=== PATIENT | female | born 1955 | race Caucasian/White ===

== ENCOUNTER 2022-12-29 17:24 | Inpatient (IN) ==
--- NOTE | 2022-12-29 17:39 | DR.DIARMA ---
HPI Time seen Time Seen by Provider: 12/29/22 17:39 Complaint Chief Complaint Doctor Comments: 67 y/o female presents for evaluation. Started feeling ill yesterday, 30 minutes after eating [employer]. Started with nausea, vomited once. Has had several episodes of diarrhea. Running low grade temp, with chills. Took a [address] ride yesterday. Having left lateral chest discomfort, dull, does not radiate. + worse with deep breathing. Nothing makes it better. Reviewed Nurses notes reviewed: Yes Source History Provided: Patient Mode of Arrival Mode of Arrival: Ambulatory PMH PMH Past Medical History: COPD, Diabetes, Dyslipidemia and Hypertension Past Surgical History: Yes Surgical History: Appendectomy Family History Family Medical History: Coronary Artery Disease and Hypertension Social History Do you use any recreational Drugs:: No ROS Review of Systems Constitutional: Chills, Fever and Weakness Eyes: No Symptoms Reported ENTM: No Symptoms Reported Respiratoy: No Symptoms Reported Cardiovascular: Chest Pain Gastrointestinal/Abdominal: Diarrhea, Nausea and Vomiting Genitourinary: No Symptoms Reported Neurological: Weakness Musculoskeletal: No Symptoms Reported Integumentary: No Symptoms Reported Hematologic/Lymphatic: No Symptoms Reported All Other Systems: Reviewed and Negative PE Vital Signs Vitals: Temperature 99.6 F Pulse Rate 84 Respiratory Rate 20 Blood Pressure 104/48 O2 Sat by Pulse Oximetry 93 General General Appearance: Alert and In No Apparent Distress Eyes Eye exam: PERRL and EOMI ENT ENT Exam: Normal Exam, Normal Oropharynx and Mucous Membranes Dry Neck Neck Exam: Normal Inspection Chest Chest Inspection: Tenderness (mild, left lateral chest wall) Respiratory Respiratory Exam: Normal Lung Sounds Bilat; negative Accessory Muscle Use or Respiratory Distress Cardiovascular Cardiovascular Exam: Regular Rate, Normal Rhythm and Normal Heart Sounds Abdominal Exam Abdominal Exam: Normal Bowel Sounds and Soft; negative Tenderness, Guarding or Rebound Extremeties Extremities Exam: Normal Inspection and Full ROM; negative Edema Neurologic Neurological Exam: Alert, Oriented X3 and CN II-XII Intact; negative Motor Sensory Deficit Skin Skin Exam: Warm and Dry COURSE Treatment Treatment: 7 y/o female ill since yesterday. + nausea, one episode of vomiting and frequent diarrhea. BP low on arrival. Not dizzy or lightheaded. Having left lateral chest discomfort with deep breath. W/u initiated. Given IV fluids, IV zofran. 1915 - + marked elevated WBC, 35K, with left shift. Sodium low at 130. Good bicarb, but LA elevated. Concerning for developing sepsis. Given additional IV fluids, Given IV antibiotic (Levaquin, Flagyl), for possible abdominal infection. D-dimer elevated. EGFR lower than ideal. Will cover with Lovenox for possible PE, perform a plain CT of the abd//pelvis for further information. Discussed with her attending, Dr Wild, will admit. ROR Labs Reviewed Laboratory Results Reviewed?: Yes Result Diagrams: 12/29/22 17:40 12/29/22 17:40 Laboratory: WBC 34.9 X10^3/uL (3.6-10.0) H* 12/29/22 17:40 RBC 3.55 X10^6/uL (3.5-5.4) 12/29/22 17:40 Hgb 10.6 g/dL (12.0-16.0) L 12/29/22 17:40 Hct 32.0 % (36.0-47.0) L 12/29/22 17:40 MCV 90.1 fL (80.0-100.0) 12/29/22 17:40 MCH 29.8 pg (27.0-34.0) 12/29/22 17:40 MCHC 33.1 g/dL (33.0-35.0) 12/29/22 17:40 RDW 15.0 % (11.6-16.5) 12/29/22 17:40 Plt Count 242 X10^3/uL (150.0-450.0) 12/29/22 17:40 Plt Count Comment Adequate (ADEQUATE) 12/29/22 17:40 MPV 9.0 fL (7.4-11.0) 12/29/22 17:40 Neut % (Auto) 94.7 % (42.0-75.0) H 12/29/22 17:40 Lymph % (Auto) 1.8 % (21.0-51.0) L 12/29/22 17:40 [place] % (Auto) 3.2 % (0.0-13.0) 12/29/22 17:40 Eos % (Auto) 0.1 % (0.9-2.9) L 12/29/22 17:40 Baso % (Auto) 0.2 % (0.2-1.0) 12/29/22 17:40 Neut # (Auto) 33.1 x10^3/uL (2.2-4.8) H 12/29/22 17:40 Lymph # (Auto) 0.6 X10^3/uL (1.3-2.9) L 12/29/22 17:40 [place] # (Auto) 1.1 x10^3/uL (0.3-0.8) H 12/29/22 17:40 Eos # (Auto) 0.0 x10^3/uL (0.0-0.2) 12/29/22 17:40 Baso # (Auto) 0.1 X10^3/uL (0.0-0.1) 12/29/22 17:40 Absolute Nucleated RBC 0.0 /100WBC 12/29/22 17:40 Total Counted 100 12/29/22 17:40 Neutrophils % (Manual) 95 % (39-76) H 12/29/22 17:40 Lymphocytes % (Manual) 4 % (13-43) L 12/29/22 17:40 Monocytes % (Manual) 1 % (4-9) L 12/29/22 17:40 Plt Morphology Comment Normal (NORMAL) 12/29/22 17:40 RBC Morphology Normal (NORMAL) 12/29/22 17:40 D-Dimer 2.19 ug/ml (0.0-0.57) H 12/29/22 17:40 Sodium 130 mmol/L (136-145) L 12/29/22 17:40 Corrected Sodium 131 mmol/L (136-145) L 12/29/22 17:40 Potassium 4.2 mmol/L (3.5-5.1) 12/29/22 17:40 Chloride 97 mmol/L (98-107) L 12/29/22 17:40 Carbon Dioxide 22.0 mmol/L (21-32) 12/29/22 17:40 BUN 38 mg/dL (7-18) H 12/29/22 17:40 Creatinine 1.56 mg/dL (0.55-1.02) H 12/29/22 17:40 Est GFR (MDRD) Af Amer 43 (>60) L 12/29/22 17:40 Est GFR (MDRD) Non-Af 35 (>60) L 12/29/22 17:40 Glucose 156 mg/dL (65-99) H 12/29/22 17:40 Lactic Acid 2.8 mmol/L (0.4-2.0) H 12/29/22 18:26 Calcium 8.7 mg/dL (8.5-10.1) 12/29/22 17:40 Corrected Calcium 9.7 mg/dL (8.5-10.1) 12/29/22 17:40 Total Bilirubin 0.50 mg/dL (0.2-1.0) 12/29/22 17:40 AST 23 Units/L (15-37) 12/29/22 17:40 ALT 21 Units/L (12-78) 12/29/22 17:40 Alkaline Phosphatase 77 Units/L (46-116) 12/29/22 17:40 Total Protein 6.7 g/dL (6.4-8.2) 12/29/22 17:40 Albumin 2.7 g/dL (3.4-5.0) L 12/29/22 17:40 Globulin 4.0 g/dL (2.5-4.5) 12/29/22 17:40 Albumin/Globulin Ratio 0.7 Ratio (1.1-2.1) L 12/29/22 17:40 Lipase 52 Units/L (73-393) L 12/29/22 17:40 Specimen Type Clean catch urine 12/29/22 18:56 Urine Color Yellow (YELLOW) 12/29/22 18:56 Urine Appearance Slightly hazy (CLEAR) 12/29/22 18:56 Urine pH 5.0 (5.0 - 8.0) 12/29/22 18:56 Ur Specific [place] 1.020 (1.000-1.030) 12/29/22 18:56 Urine Protein 1+ (NEGATIVE) 12/29/22 18:56 Urine Glucose (UA) Negative (NEGATIVE) 12/29/22 18:56 Urine Ketones Negative (NEGATIVE) 12/29/22 18:56 Urine Blood 2+ (NEGATIVE) 12/29/22 18:56 Urine Nitrite Negative (NEGATIVE) 12/29/22 18:56 Urine Bilirubin Negative (NEGATIVE) 12/29/22 18:56 Urine Urobilinogen Normal (NORMAL) 12/29/22 18:56 Ur Leukocyte Esterase Negative (NEGATIVE) 12/29/22 18:56 Urine RBC 3-5 /HPF (0-3) A 12/29/22 18:56 Urine WBC 0-2 /HPF (0-5) 12/29/22 18:56 Ur Squamous Epith Cells Moderate /HPF (NEGATIVE) 12/29/22 18:56 Amorphous Sediment 1+ /HPF (NEGATIVE) 12/29/22 18:56 Urine Bacteria Trace /HPF (NEGATIVE) 12/29/22 18:56 Hyaline Casts Moderate /LPF (NEGATIVE) 12/29/22 18:56 Coarse Granular Casts Rare /HPF (NEGATIVE) 12/29/22 18:56 Urine Mucus Few /HPF (NEGATIVE) 12/29/22 18:56 Ur Culture Indicated? No/not indicated 12/29/22 18:56 SARS-CoV-2 (PCR) Negative (NEGATIVE) 12/29/22 17:53 Influenza Type A (PCR) Negative (NEGATIVE) 12/29/22 17:53 Influenza Type B (PCR) Negative (NEGATIVE) 12/29/22 17:53 RSV (PCR) Negative (NEGATIVE) 12/29/22 17:53 EKG Rate: 85 Lykens: Normal Rhythm: NSR ST: Normal Opioid Opioid Risk Tool Age (Yaron box if 16-45): No History of Preadolescent Sexual Abuse: No Total: 0 Total Score Risk Category: Low Risk Copyright: Robert CARREON predicting aberrant behaviors Discharge Plan Diagnosis Discharge Problem: Diarrhea in adult patient, Sepsis Discharge Plan Patient Disposition: 09 ADMITTED INPATIENT Condition: Stable Orders to Discharge Patient Discharge Orders: Transfer (Routine); Ordered 12/29/22 Ordered By: Jesse Soto
[2022-12-29] MEDS ORDERED: NS 1,000 ML IV 1,000 ML IV ONE ×2 (17:42→19:17)
[2022-12-29] MEDS ORDERED: ZOFRAN INJ 4 MG VIAL IVP ONE (17:42)
[2022-12-29 17:45] VITALS: BMI 52.3
[2022-12-29] MEDS ORDERED: NS 1,000 ML IV 1,000 ML ONE ×2 (17:47→19:18)
[2022-12-29] MEDS ORDERED: ZOFRAN INJ 4 MG VIAL ONE (17:47)
[2022-12-29 17:56] LABS: LYMPHOCYTES # (AUTO) 0.6 X10^3/uL (1.3-2.9)
[2022-12-29 18:01] LABS: BASOPHILS # (AUTO) 0.1 X10^3/uL (0.0-0.1); BASOPHILS % (AUTO) 0.2 % (0.2-1.0); EOSINOPHILS % (AUTO) 0.1 % (0.9-2.9); HEMOGLOBIN 10.6 g/dL (12.0-16.0); LYMPHOCYTES % (AUTO) 1.8 % (21.0-51.0); MEAN CORPUSCULAR HEMOGLOBIN 29.8 pg (27.0-34.0); MEAN CORPUSCULAR HGB CONC 33.1 g/dL (33.0-35.0); MEAN CORPUSCULAR VOLUME 90.1 fL (80.0-100.0); MONOCYTES # (AUTO) 1.1 x10^3/uL (0.3-0.8); MONOCYTES % (AUTO) 3.2 % (0.0-13.0); NEUTROPHILS # (AUTO) 33.1 x10^3/uL (2.2-4.8); NEUTROPHILS % (AUTO) 94.7 % (42.0-75.0); RED BLOOD COUNT 3.55 X10^6/uL (3.5-5.4)
[2022-12-29 18:04] LABS: WHITE BLOOD COUNT 34.9 X10^3/uL (3.6-10.0)
[2022-12-29 18:05] LABS: ALBUMIN 2.7 g/dL (3.4-5.0); CALCIUM 8.7 mg/dL (8.5-10.1); COR CA(FOR HYPOALB) 9.7 mg/dL (8.5-10.1); CREATININE 1.56 mg/dL (0.55-1.02); TOTAL PROTEIN 6.7 g/dL (6.4-8.2)
[2022-12-29 18:13] LABS: PLATELET MORPHOLOGY COMMENT NORMAL (NORMAL)
[2022-12-29 19:02] LABS: BILIRUBIN,URINE NEGATIVE (NEGATIVE); BLOOD/HEMOGLOBIN,URINE 2+ (NEGATIVE); GLUCOSE, URINE NEGATIVE (NEGATIVE); KETONES,URINE NEGATIVE (NEGATIVE); LEUKOCYTE ESTERASE ,URINE NEGATIVE (NEGATIVE); NITRITES,URINE NEGATIVE (NEGATIVE); PROTEIN,URINE 1+ (NEGATIVE); UROBILINOGEN,URINE NORMAL (NORMAL)
[2022-12-29 19:03] LABS: APPEARANCE,URINE SLIGHTLY HAZY (CLEAR); COLOR,URINE YELLOW (YELLOW)
[2022-12-29] MEDS ORDERED: LEVAQUIN PREMIX IV 750 MG 750 MG/150 ML BAG IV ONE ×2 (19:06→19:10)
[2022-12-29] MEDS ORDERED: FLAGYL IV PREMIX 500 MG BAG 500 MG/100 ML BAG IV ONE ×2 (19:06→19:40)
[2022-12-29 19:12] LABS: BACTERIA,URINE TRACE /HPF (NEGATIVE); SQUAMOUS EPITHELIAL CELL,UR MODERATE /HPF (NEGATIVE)
[2022-12-29 19:13] LABS: COARSE GRANULAR CASTS,URINE RARE /HPF (NEGATIVE); HYALINE CASTS, URINE MODERATE /LPF (NEGATIVE)
[2022-12-29] MEDS ORDERED: ZOFRAN INJ 4 MG VIAL IVP PRN (19:17)
[2022-12-29] MEDS ORDERED: LOVENOX INJ 100 MG SYR SC STA (19:25)
--- NOTE | 2022-12-29 19:27 | EKG ---
Test Reason : sepsis Blood Pressure : */* mmHG Vent. Rate : 85 BPM Atrial Rate : 85 BPM P-R Int : 208 ms QRS Dur : 84 ms QT Int : 382 ms P-R-T Axes : 10 34 39 degrees QTc Int : 454 ms Normal sinus rhythm with sinus arrhythmia Normal ECG No previous ECGs available Confirmed by Brian Padron ([id number]) on 01/01/2023 2:40:03 PM Referred By: Confirmed By: Brian Padron
[2022-12-29] MEDS ORDERED: SOLU-Cortef INJ ONE (19:31)
[2022-12-29 19:39] LABS: ABG BASE EXCESS -1.7 mmol/L (-2.0-2.0); ABG HCO3 21.7 mmol/L (22-26)
[2022-12-29] MEDS: SOLU-Cortef INJ IVP SCH (19:39)
[2022-12-29 19:40] LABS: ABG ALLEN TEST POS
[2022-12-29] MEDS ORDERED: NovoLIN R (or HumuLIN R) SUBCUT PRN (19:53)
[2022-12-29] MEDS ORDERED: SNACK - Diabetic Appropriate PO SCH (20:00)
[2022-12-29 20:19] LABS: INR 1.47 (0.8-1.3)
--- NOTE | 2022-12-29 20:35 | CT ---
HISTORYdiarrhea, elev WBC, L sided pleuritic painSTUDYABDOMEN/PELVIS W/O CONCOMPARISONTECHNIQUEMultiple axial images of the abdomen and pelvis were obtained from the lung bases to the pubic symphysis without the administration of IV contrast. Dose reduction techniques including Automated Exposure Control (AEC) and adjustment of mA and kV were utilized.FINDINGSThere is opacity in the lingula which could be atelectasis or infiltrate. There are bi and lateral lower lobe opacities more typical for atelectasis. There is a trace left pleural effusion. The liver is grossly normal. There are stones in the gallbladder but no evidence for cholecystitis. Pancreas is mildly atrophic. The spleen and adrenal glands are normal. There is some renal cortical thinning but no mass, stone, or hydronephrosis. The stomach and small bowel loops are normal. The appendix is not identified but there is no evidence for appendicitis. There are a few scattered diverticula in the distal colon but there is no diverticulitis. Urinary bladder and uterus are normal and there is no adnexal mass.IMPRESSION1. Opacity in the lingula suggestive of pneumonia 2. Mild bilateral lower lobe opacity typical for atelectasis with trace left effusion. 3. No acute intra abdominal pathology.Electronically signed by: Jef Rico (Dec 29, 2022 20:34:02)
[2022-12-29] MEDS: NS 1,000 ML IV 1,000 ML IV SCH (21:00)
[2022-12-29] MEDS: AMBIEN PO SCH (21:19)
[2022-12-29] MEDS: GLUCOPHAGE XR 24-HR PO SCH (21:19)
[2022-12-29] MEDS: FLAGYL IV PREMIX 500 MG BAG 500 MG/100 ML BAG IV SCH (23:12)
[2022-12-30] MEDS: XOPENEX 1.25 MG/3 ML NEBULE NEB SCH ×5 (00:05→18:15)
--- NOTE | 2022-12-30 01:31 | RAD ---
HISTORYC/O OF A DULL LEFT SIDED PAIN THAT STARTED YESTERDAY ALONG WITH NAUSEA/VOMITING/DIARRHEA ALONG WITH A LONG GRADE FEVER Relevant Clinical InformationSTUDYCHEST, 1 [id number]/2021FINDINGSThe trachea is midline. The cardiac silhouette is unremarkable. Mild bibasilar interstitial edema and/or infiltrates. No pleural effusion or pneumothorax. The bony thorax is unremarkable.IMPRESSIONMild bibasilar interstitial edema and/or infiltrates..Electronically signed by: Rajinder Ramírez (Dec 30, 2022 01:30:41)
[2022-12-30 02:27] LABS: BASOPHILS # (AUTO) 0.2 X10^3/uL (0.0-0.1); BASOPHILS % (AUTO) 0.6 % (0.2-1.0); HEMATOCRIT 28.7 % (36.0-47.0); HEMOGLOBIN 9.4 g/dL (12.0-16.0); LYMPHOCYTES # (AUTO) 0.9 X10^3/uL (1.3-2.9); LYMPHOCYTES % (AUTO) 2.6 % (21.0-51.0); MEAN CORPUSCULAR HEMOGLOBIN 29.4 pg (27.0-34.0); MEAN CORPUSCULAR HGB CONC 32.9 g/dL (33.0-35.0); MEAN CORPUSCULAR VOLUME 89.4 fL (80.0-100.0); MEAN PLATELET VOLUME 8.8 fL (7.4-11.0); MONOCYTES # (AUTO) 1.4 x10^3/uL (0.3-0.8); NEUTROPHILS # (AUTO) 31.6 x10^3/uL (2.2-4.8); NEUTROPHILS % (AUTO) 92.8 % (42.0-75.0); RED BLOOD COUNT 3.21 X10^6/uL (3.5-5.4); RED CELL DISTRIBUTION WIDTH 15.1 % (11.6-16.5)
[2022-12-30 02:30] LABS: ALBUMIN 2.3 g/dL (3.4-5.0); CALCIUM 8.2 mg/dL (8.5-10.1); CARBON DIOXIDE 24.3 mmol/L (21-32); COR CA(FOR HYPOALB) 9.6 mg/dL (8.5-10.1); CREATININE 1.37 mg/dL (0.55-1.02); TOTAL PROTEIN 6.1 g/dL (6.4-8.2)
[2022-12-30 02:31] LABS: LACTIC ACID 0.6 mmol/L (0.4-2.0)
[2022-12-30 02:37] LABS: WHITE BLOOD COUNT 34.1 X10^3/uL (3.6-10.0)
[2022-12-30 02:38] LABS: BAND NEUTROPHILS % 7 % (0-10)
[2022-12-30 02:39] LABS: PLATELET MORPHOLOGY COMMENT NORMAL (NORMAL)
[2022-12-30] MEDS: SOLU-Cortef INJ IVP SCH ×4 (02:45→20:13)
[2022-12-30] MEDS: NS 1,000 ML IV 1,000 ML IV SCH ×3 (03:03→23:13)
[2022-12-30] MEDS: FLAGYL IV PREMIX 500 MG BAG 500 MG/100 ML BAG IV SCH (05:24)
[2022-12-30] MEDS ORDERED: NS 1,000 ML IV 1,000 ML IV ONE (08:13)
[2022-12-30 08:22] LABS: LACTIC ACID 0.8 mmol/L (0.4-2.0)
[2022-12-30] MEDS: PULMICORT NEB TX 0.5 MG NEB SCH ×2 (08:45→20:11)
[2022-12-30] MEDS ORDERED: PATIENT'S HOME MEDICATION (Fluticasone-Umeclidin-Vilanter [Trelegy Ellipta] 100-62.5-25 mc IN SCH (09:00)
[2022-12-30] MEDS ORDERED: CELEXA PO SCH (09:00)
[2022-12-30] MEDS ORDERED: VIBRAMYCIN IV ONE (09:00)
[2022-12-30] MEDS ORDERED: LEXAPRO PO SCH (09:00)
[2022-12-30] MEDS: LOVENOX INJ 100 MG SYR SC SCH (09:07)
[2022-12-30] MEDS: VSL#3 PO SCH (09:07)
[2022-12-30] MEDS: ACTOS PO SCH (09:08)
[2022-12-30] MEDS: SINGULAIR TAB 10 MG PO SCH (09:08)
[2022-12-30] MEDS: ZOCOR TAB 40 MG PO SCH (09:08)
[2022-12-30] MEDS: GLUCOPHAGE XR 24-HR PO SCH ×2 (09:08→21:14)
[2022-12-30] MEDS: LEVAQUIN PREMIX IV 750 MG 750 MG/150 ML BAG IV SCH (09:09)
[2022-12-30] MEDS: VIBRAMYCIN 100 MG in D5W 250 ML IV 250 ML IV SCH ×2 (09:09→21:14)
[2022-12-30] MEDS ORDERED: LEXAPRO ONE (09:16)
[2022-12-30] MEDS: ZYLOPRIM PO SCH (10:10)
[2022-12-30] MEDS: AMBIEN PO SCH (21:13)
[2022-12-31] MEDS: XOPENEX 1.25 MG/3 ML NEBULE NEB SCH ×4 (00:05→17:16)
[2022-12-31] MEDS: SOLU-Cortef INJ IVP SCH ×4 (02:31→20:49)
[2022-12-31] MEDS: NS 1,000 ML IV 1,000 ML IV SCH ×5 (04:54→20:49)
[2022-12-31 05:56] LABS: BASOPHILS % (AUTO) 0.1 % (0.2-1.0); HEMATOCRIT 29.3 % (36.0-47.0); HEMOGLOBIN 9.7 g/dL (12.0-16.0); LYMPHOCYTES # (AUTO) 0.6 X10^3/uL (1.3-2.9); LYMPHOCYTES % (AUTO) 3.8 % (21.0-51.0); MEAN CORPUSCULAR HEMOGLOBIN 29.9 pg (27.0-34.0); MEAN CORPUSCULAR HGB CONC 33.3 g/dL (33.0-35.0); MEAN CORPUSCULAR VOLUME 89.9 fL (80.0-100.0); MONOCYTES # (AUTO) 0.4 x10^3/uL (0.3-0.8); MONOCYTES % (AUTO) 2.1 % (0.0-13.0); NEUTROPHILS # (AUTO) 15.8 x10^3/uL (2.2-4.8); RED BLOOD COUNT 3.26 X10^6/uL (3.5-5.4); WHITE BLOOD COUNT 16.8 X10^3/uL (3.6-10.0)
[2022-12-31 06:06] LABS: ALANINE AMINOTRANSFERASE 19 Units/L (12-78); ALBUMIN 2.3 g/dL (3.4-5.0); ALKALINE PHOSPHATASE 73 Units/L (46-116); ASPARTATE AMINO TRANSFERASE 18 Units/L (15-37); BLOOD UREA NITROGEN 27 mg/dL (7-18); CALCIUM 8.8 mg/dL (8.5-10.1); CARBON DIOXIDE 23.2 mmol/L (21-32); CHLORIDE 104 mmol/L (98-107); COR CA(FOR HYPOALB) 10.2 mg/dL (8.5-10.1); COR NA(FOR HYPERGLY) 137 mmol/L (136-145); CREATININE 0.98 mg/dL (0.55-1.02); SODIUM 136 mmol/L (136-145); TOTAL PROTEIN 6.4 g/dL (6.4-8.2); eGFR NON BLACK RACES > 60 (>60)
[2022-12-31 06:15] LABS: BAND NEUTROPHILS % 2 % (0-10); PLATELET MORPHOLOGY COMMENT NORMAL (NORMAL)
--- NOTE | 2022-12-31 06:17 | RAD ---
HISTORYSEPSIS, SOBSTUDYCHEST, 1 [id number]/07/2023.TECHNIQUEPA or AP view of the chestFINDINGSThe cardiac silhouette is stably enlarged. Mediastinal contours appear stable. Similar appearance of left worse than right lung airspace opacities. There is blunting of the left costophrenic sulcus. No pneumothorax.IMPRESSIONNo significant change compared to prior radiograph. Blunted left costophrenic sulcus can be seen with small pleural effusion or pleuro-parynchemal scarring.Electronically signed by: Arnold Dillon (Dec 31, 2022 06:16:50)
[2022-12-31] MEDS: VIBRAMYCIN 100 MG in D5W 250 ML IV 250 ML IV SCH ×2 (08:36→20:48)
[2022-12-31] MEDS: ZYLOPRIM PO SCH (08:36)
[2022-12-31] MEDS: LEVAQUIN PREMIX IV 750 MG 750 MG/150 ML BAG IV SCH (08:36)
[2022-12-31] MEDS: VSL#3 PO SCH (08:36)
[2022-12-31] MEDS: LOVENOX INJ 100 MG SYR SC SCH (08:37)
[2022-12-31] MEDS: PULMICORT NEB TX 0.5 MG NEB SCH ×2 (08:38→20:30)
[2022-12-31] MEDS ORDERED: LEXAPRO ONE (08:41)
[2022-12-31] MEDS: LEXAPRO PO SCH (08:42)
[2022-12-31] MEDS: GLUCOPHAGE XR 24-HR PO SCH ×2 (08:42→20:47)
[2022-12-31] MEDS: SINGULAIR TAB 10 MG PO SCH (08:42)
[2022-12-31] MEDS: ZOCOR TAB 40 MG PO SCH (08:42)
[2022-12-31] MEDS: ACTOS PO SCH (08:43)
[2022-12-31] MEDS: TENORMIN PO SCH (08:44)
[2022-12-31] MEDS: AMBIEN PO SCH (20:46)
[2023-01-01] MEDS: XOPENEX 1.25 MG/3 ML NEBULE NEB SCH ×4 (00:25→17:05)
[2023-01-01] MEDS: SOLU-Cortef INJ IVP SCH ×4 (03:00→20:36)
[2023-01-01] MEDS: NS 1,000 ML IV 1,000 ML IV SCH ×4 (04:18→18:29)
[2023-01-01 05:15] LABS: BASOPHILS % (AUTO) 0.1 % (0.2-1.0); HEMATOCRIT 27.7 % (36.0-47.0); LYMPHOCYTES # (AUTO) 0.7 X10^3/uL (1.3-2.9); LYMPHOCYTES % (AUTO) 5.5 % (21.0-51.0); MEAN CORPUSCULAR HEMOGLOBIN 29.4 pg (27.0-34.0); MEAN CORPUSCULAR HGB CONC 32.7 g/dL (33.0-35.0); MEAN CORPUSCULAR VOLUME 90.1 fL (80.0-100.0); MEAN PLATELET VOLUME 8.9 fL (7.4-11.0); MONOCYTES # (AUTO) 0.4 x10^3/uL (0.3-0.8); MONOCYTES % (AUTO) 3.2 % (0.0-13.0); NEUTROPHILS # (AUTO) 11.5 x10^3/uL (2.2-4.8); NEUTROPHILS % (AUTO) 91.2 % (42.0-75.0); RED BLOOD COUNT 3.07 X10^6/uL (3.5-5.4); RED CELL DISTRIBUTION WIDTH 14.5 % (11.6-16.5); WHITE BLOOD COUNT 12.6 X10^3/uL (3.6-10.0)
[2023-01-01 05:28] LABS: ALANINE AMINOTRANSFERASE 18 Units/L (12-78); ALKALINE PHOSPHATASE 61 Units/L (46-116); ASPARTATE AMINO TRANSFERASE 14 Units/L (15-37); BLOOD UREA NITROGEN 19 mg/dL (7-18); CALCIUM 8.5 mg/dL (8.5-10.1); CARBON DIOXIDE 24.9 mmol/L (21-32); CHLORIDE 108 mmol/L (98-107); COR CA(FOR HYPOALB) 10.1 mg/dL (8.5-10.1); COR NA(FOR HYPERGLY) 139 mmol/L (136-145); CREATININE 0.81 mg/dL (0.55-1.02); SODIUM 138 mmol/L (136-145); TOTAL PROTEIN 5.5 g/dL (6.4-8.2); eGFR NON BLACK RACES > 60 (>60)
[2023-01-01 05:33] LABS: BAND NEUTROPHILS % 2 % (0-10); PLATELET MORPHOLOGY COMMENT NORMAL (NORMAL)
--- NOTE | 2023-01-01 06:42 | RAD ---
HISTORYSOBSTUDYCHEST, 1 [id number]/09/2023.TECHNIQUEPA or AP view of the chestFINDINGSCardiac silhouette is stably enlarged. Patient is rotated. Similar appearing left worse than right lung airspace and interstitial opacities. Left costophrenic sulcus not imaged. There is blunting of the right costophrenic sulcus. There is pulmonary vascular congestion. Soft tissue attenuation limits evaluation.IMPRESSIONNo significant change in airspace and interstitial opacities that may represent pulmonary edema or pneumonia. Blunted right costophrenic sulcus can be seen with small pleural effusion or pleuro-parynchemal scarring.Electronically signed by: Arnold Dillon (Jan 01, 2023 06:40:14)
[2023-01-01] MEDS ORDERED: LEXAPRO ONE (08:20)
[2023-01-01] MEDS: VIBRAMYCIN 100 MG in D5W 250 ML IV 250 ML IV SCH ×2 (08:39→20:38)
[2023-01-01] MEDS: LEVAQUIN PREMIX IV 750 MG 750 MG/150 ML BAG IV SCH (08:39)
[2023-01-01] MEDS: VSL#3 PO SCH (08:40)
[2023-01-01] MEDS: GLUCOPHAGE XR 24-HR PO SCH ×2 (08:40→20:38)
[2023-01-01] MEDS: LEXAPRO PO SCH (08:40)
[2023-01-01] MEDS: TENORMIN PO SCH (08:40)
[2023-01-01] MEDS: SINGULAIR TAB 10 MG PO SCH (08:41)
[2023-01-01] MEDS: LOVENOX INJ 100 MG SYR SC SCH (08:41)
[2023-01-01] MEDS: ACTOS PO SCH (08:41)
[2023-01-01] MEDS: ZYLOPRIM PO SCH (08:41)
[2023-01-01] MEDS: ZOCOR TAB 40 MG PO SCH (08:41)
[2023-01-01] MEDS: PULMICORT NEB TX 0.5 MG NEB SCH ×2 (08:45→21:30)
[2023-01-01] MEDS ORDERED: NS 1,000 ML IV 1,000 ML ONE (18:24)
[2023-01-01] MEDS: AMBIEN PO SCH (20:38)
--- NOTE | 2023-01-01 21:12 | PCM.PROG ---
Progress Note - Progress Note for Day of Date of Exam: 12/31/22 - Subjective Subjective: IS A 67 YEAR OLD PATIENT OF . SHE IS CURRENTLY INPATIENT STATUS FOR TREATMENT OF PNEUMONIA, SEPSIS, DEHYDRATION, DIARRHEA, AND HYPOTENSION. TODAY, SHE IS ALERT AND ORIENTED, SITTING UP ON THE SIDE OF THE BED ON MORNING ROUNDS. SHE COMPLAINS OF GENERALIZED WEAKNESS AND INTERMITTENT SHORTNESS OF BREATH TODAY. SHE DENIES NAUSEA, VOMITING, OR ANY CHEST DISCOMFORT. ON EXAMINATION, HEART IS REGULAR IN RATE AND RHYTHM. BILATERAL LUNGS ARE NOTED WITH DIMINISHED LUNG SOUNDS THROUGHOUT. ABDOMEN IS ROUND, SOFT, AND NON-TENDER WITH NORMAL BOWEL SOUNDS NOTED IN ALL QUADRANTS. NO UPPER OR LOWER EXTREMITY EDEMA NOTED. HER VITALS THIS MORNING ARE: 97.8-81-20-94%-135/63. LABS WERE OBT AINED. WBC 16.8, RBC 3.26, HGB 9.7, HCT 29.3, PLT COUNT 228, SODIUM 136, POTASSIUM 3.9, CHLORIDE 104, BUN 27, CREATININE 0.98, GLUCOSE 142, CALCIUM 8.8, AST 18, ALT 19, ALK PHOS 73, TOTAL PROTEIN 6.4, ALBUMIN 2.3, GLOBULIN 4.1. BLOOD CULTURES ARE PENDING. A CHEST XRAY WAS OBTAINED TODAY AND REVEALED: No significant change compared to prior radiograph. Blunted left costophrenic sulcus can be seen with small pleural effusion or pleuro-parynchemal scarring. SHE IS CURRENTLY RECEIVING NORMAL SALINE AT 50 ML/HR, DOXYCYCLINE 100MG IV Q12H, LEVAQUIN 750MG IV DAILY, PULMICORT NEBS BID, XOPENEX NEBS Q6H, SOLU-CORTEF 50MG IV Q6H, LOVENOX 50MG IV Q6H, PROBIOTICS 2 CAPSULES DAILY, ZOFRAN 4MG IV Q6H PRN. HER HOME MEDICATIONS OF ZYLOPRIM, TENORMIN, LEXAPRO, GLUCOPHAGE, SINGULAIR, ACTOS, ZOCOR, AND AMBIEN WERE ALSO RESUMED. WE WILL CONTINUE WITH CURRENT PLAN OF CARE TODAY. OTHERWISE, WE PLAN TO FOLLOW-UP WITH AM LABS AND CHEST XRAY AND CONTINUE TO MONITOR. TIME SPENT ON CLINICAL ASSESSMENT, REVIEWING LABS AND IMAGING, DECISION MAKING, AND DOCUMENTATION GREATER THAN 45 MINUTES. - Past Medical Family Social History Past Med/Fam/Surg Hx: No changes since H&P Allergies: Allergies No Known Drug Allergies Allergy (Verified 03/17/21 13:48) - Review of Systems ROS: No change since H&P - Vital Signs and I&O's Vital Signs: Temperature 97.9 F Pulse Rate [Right Brachial] 92 Pulse Rate 68 Respiratory Rate 20 Blood Pressure [Left Arm] 115/56 Blood Pressure 104/48 O2 Sat by Pulse Oximetry 92 Intake and Output: Intake & Output 12/30/22 12/31/22 01/01/23 01/02/23 11:59 11:59 11:59 11:59 Intake Total 1974 3630 / 3630 4410 / 4410 1420 / 1420 Balance 1974 3630 / 3630 4410 / 4410 1420 / 1420 - Physical Exam Oriented: Normal Eyes: Normal Ear: Normal Nose: Normal Throat: Normal Respiratory: Diminished Cardiovascular: Normal : Normal Auscultation: Bowel Sounds: Normal Palpation: Normal Tenderness: Normal Skin: Normal Musculoskeletal: Normal Psychiatric: Normal Mood Description: Calm Affect: Normal Speech Pattern: Clear, Appropriate - Laboratory and Diagnostics Result Diagrams: 01/01/23 04:15 01/01/23 04:15 Labs: 12/29/22 18:15 Blood Blood Culture - Preliminary 12/29/22 18:26 Blood Blood Culture - Preliminary Laboratory WBC 12.6 X10^3/uL (3.6-10.0) H 01/01/23 04:15 RBC 3.07 X10^6/uL (3.5-5.4) L 01/01/23 04:15 Hgb 9.0 g/dL (12.0-16.0) L 01/01/23 04:15 Hct 27.7 % (36.0-47.0) L 01/01/23 04:15 MCV 90.1 fL (80.0-100.0) 01/01/23 04:15 MCH 29.4 pg (27.0-34.0) 01/01/23 04:15 MCHC 32.7 g/dL (33.0-35.0) L 01/01/23 04:15 RDW 14.5 % (11.6-16.5) 01/01/23 04:15 Plt Count 229 X10^3/uL (150.0-450.0) 01/01/23 04:15 Plt Count Comment Adequate (ADEQUATE) 01/01/23 04:15 MPV 8.9 fL (7.4-11.0) 01/01/23 04:15 Neut % (Auto) 91.2 % (42.0-75.0) H 01/01/23 04:15 Lymph % (Auto) 5.5 % (21.0-51.0) L 01/01/23 04:15 [place] % (Auto) 3.2 % (0.0-13.0) 01/01/23 04:15 Eos % (Auto) 0.0 % (0.9-2.9) L 01/01/23 04:15 Baso % (Auto) 0.1 % (0.2-1.0) L 01/01/23 04:15 Neut # (Auto) 11.5 x10^3/uL (2.2-4.8) H 01/01/23 04:15 Lymph # (Auto) 0.7 X10^3/uL (1.3-2.9) L 01/01/23 04:15 [place] # (Auto) 0.4 x10^3/uL (0.3-0.8) 01/01/23 04:15 Eos # (Auto) 0.0 x10^3/uL (0.0-0.2) 01/01/23 04:15 Baso # (Auto) 0.0 X10^3/uL (0.0-0.1) 01/01/23 04:15 Absolute Nucleated RBC 0.0 /100WBC 01/01/23 04:15 Total Counted 100 01/01/23 04:15 Neutrophils % (Manual) 95 % (39-76) H 01/01/23 04:15 Band Neutrophils % 2 % (0-10) 01/01/23 04:15 Lymphocytes % (Manual) 1 % (13-43) L 01/01/23 04:15 Monocytes % (Manual) 2 % (4-9) L 01/01/23 04:15 Plt Morphology Comment Normal (NORMAL) 01/01/23 04:15 RBC Morphology Normal (NORMAL) 01/01/23 04:15 PT 17.3 SECONDS (11.8-14.3) 12/29/22 19:55 INR Target Range - 12/29/22 19:55 INR 1.47 (0.8-1.3) H 12/29/22 19:55 APTT 40.7 SECONDS (22.9-36.5) H 12/29/22 19:55 PTT Comment - 12/29/22 19:55 D-Dimer 2.19 ug/ml (0.0-0.57) H 12/29/22 17:40 Sample Site Rr 12/29/22 19:13 ABG pH 7.440 (7.35-7.45) 12/29/22 19:13 ABG pCO2 32.0 mmHg (35.0-45.0) L 12/29/22 19:13 ABG pO2 69.0 mmHg (80.0-100.0) L 12/29/22 19:13 ABG HCO3 21.7 mmol/L (22-26) L 12/29/22 19:13 ABG O2 Saturation 94.0 % (90-100) 12/29/22 19:13 ABG Base Excess -1.7 mmol/L (-2.0-2.0) 12/29/22 19:13 Timo Test Pos 12/29/22 19:13 A-a Gradient 91.0 mmHg 12/29/22 19:13 FiO2 28.0 12/29/22 19:13 Blood Gas Comments Maricel well sw 12/29/22 19:13 Sodium 138 mmol/L (136-145) 01/01/23 04:15 Corrected Sodium 139 mmol/L (136-145) 01/01/23 04:15 Potassium 3.7 mmol/L (3.5-5.1) 01/01/23 04:15 Chloride 108 mmol/L (98-107) H 01/01/23 04:15 Carbon Dioxide 24.9 mmol/L (21-32) 01/01/23 04:15 BUN 19 mg/dL (7-18) H 01/01/23 04:15 Creatinine 0.81 mg/dL (0.55-1.02) 01/01/23 04:15 Est GFR (MDRD) Af Amer > 60 (>60) 01/01/23 04:15 Est GFR (MDRD) Non-Af > 60 (>60) 01/01/23 04:15 Glucose 132 mg/dL (65-99) H 01/01/23 04:15 POC Glucose (mg/dL) 94 mg/dL (65-99) 01/01/23 19:58 Lactic Acid 0.8 mmol/L (0.4-2.0) 12/30/22 07:55 Calcium 8.5 mg/dL (8.5-10.1) 01/01/23 04:15 Corrected Calcium 10.1 mg/dL (8.5-10.1) 01/01/23 04:15 Total Bilirubin 0.20 mg/dL (0.2-1.0) 01/01/23 04:15 AST 14 Units/L (15-37) L 01/01/23 04:15 ALT 18 Units/L (12-78) 01/01/23 04:15 Alkaline Phosphatase 61 Units/L (46-116) 01/01/23 04:15 Creatine Kinase 144 Units/L (26-192) 12/30/22 07:55 Troponin I High Sens 6.9 ng/L (4.0-60.0) 12/30/22 13:57 Total Protein 5.5 g/dL (6.4-8.2) L 01/01/23 04:15 Albumin 2.0 g/dL (3.4-5.0) L 01/01/23 04:15 Globulin 3.5 g/dL (2.5-4.5) 01/01/23 04:15 Albumin/Globulin Ratio 0.6 Ratio (1.1-2.1) L 01/01/23 04:15 Amylase 26 Units/L (25-115) 12/29/22 19:55 Lipase Cancelled 12/29/22 19:55 Cortisol 78.4 ug/dL 12/29/22 19:55 Specimen Type Clean catch urine 12/29/22 18:56 Urine Color Yellow (YELLOW) 12/29/22 18:56 Urine Appearance Slightly hazy (CLEAR) 12/29/22 18:56 Urine pH 5.0 (5.0 - 8.0) 12/29/22 18:56 Ur Specific [place] 1.020 (1.000-1.030) 12/29/22 18:56 Urine Protein 1+ (NEGATIVE) 12/29/22 18:56 Urine Glucose (UA) Negative (NEGATIVE) 12/29/22 18:56 Urine Ketones Negative (NEGATIVE) 12/29/22 18:56 Urine Blood 2+ (NEGATIVE) 12/29/22 18:56 Urine Nitrite Negative (NEGATIVE) 12/29/22 18:56 Urine Bilirubin Negative (NEGATIVE) 12/29/22 18:56 Urine Urobilinogen Normal (NORMAL) 12/29/22 18:56 Ur Leukocyte Esterase Negative (NEGATIVE) 12/29/22 18:56 Urine RBC 3-5 /HPF (0-3) A 12/29/22 18:56 Urine WBC 0-2 /HPF (0-5) 12/29/22 18:56 Ur Squamous Epith Cells Moderate /HPF (NEGATIVE) 12/29/22 18:56 Amorphous Sediment 1+ /HPF (NEGATIVE) 12/29/22 18:56 Urine Bacteria Trace /HPF (NEGATIVE) 12/29/22 18:56 Hyaline Casts Moderate /LPF (NEGATIVE) 12/29/22 18:56 Coarse Granular Casts Rare /HPF (NEGATIVE) 12/29/22 18:56 Urine Mucus Few /HPF (NEGATIVE) 12/29/22 18:56 Ur Culture Indicated? No/not indicated 12/29/22 18:56 SARS-CoV-2 (PCR) Negative (NEGATIVE) 12/29/22 17:53 Influenza Type A (PCR) Negative (NEGATIVE) 12/29/22 17:53 Influenza Type B (PCR) Negative (NEGATIVE) 12/29/22 17:53 RSV (PCR) Negative (NEGATIVE) 12/29/22 17:53 Resp Viral Panel (PCR) See scanned report 12/29/22 20:40 - Plan (1) Lingular pneumonia Status: Acute Plan: SUPPLEMENTAL OXYGEN, NORMAL SALINE AT 50 ML/HR, DOXYCYCLINE 100MG IV Q12H, LEVAQUIN 750MG IV DAILY, PULMICORT NEBS BID, XOPENEX NEBS Q6H, SOLU-CORTEF 50MG IV Q6H, LOVENOX 50MG IV Q6H, PROBIOTICS 2 CAPSULES DAILY, ZOFRAN 4MG IV Q6H PRN. HER HOME MEDICATIONS OF ZYLOPRIM, TENORMIN, LEXAPRO, GLUCOPHAGE, SINGULAIR, ACTOS, ZOCOR, AND AMBIEN WERE ALSO RESUMED (2) Sepsis Status: Acute Qualifiers: Sepsis type: sepsis due to unspecified organism Sepsis acute organ dysfunction status: unspecified Qualified Code(s): A41.9 - Sepsis, unspecified organism (3) Diarrhea in adult patient Status: Acute (4) Hypotension Status: Acute Qualifiers: Hypotension type: unspecified hypotension type Qualified Code(s): I95.9 - Hypotension, unspecified (5) Dehydration Status: Acute (6) Diabetes Status: Chronic Qualifiers: Diabetes mellitus type: type 2 Diabetes mellitus yeast washer insulin use: with yeast washer use Diabetes mellitus complication status: with hyperglycemia Qualified Code(s): E11.65 - Type 2 diabetes mellitus with hyperglycemia; 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
[2023-01-02] MEDS: XOPENEX 1.25 MG/3 ML NEBULE NEB SCH ×5 (00:01→17:06)
[2023-01-02] MEDS: SOLU-Cortef INJ IVP SCH ×4 (02:43→21:00)
[2023-01-02 06:40] LABS: BASOPHILS % (AUTO) 0.2 % (0.2-1.0); EOSINOPHILS % (AUTO) 0.1 % (0.9-2.9); HEMATOCRIT 30.2 % (36.0-47.0); HEMOGLOBIN 9.8 g/dL (12.0-16.0); LYMPHOCYTES # (AUTO) 0.8 X10^3/uL (1.3-2.9); LYMPHOCYTES % (AUTO) 7.4 % (21.0-51.0); MEAN CORPUSCULAR HEMOGLOBIN 29.1 pg (27.0-34.0); MEAN CORPUSCULAR HGB CONC 32.4 g/dL (33.0-35.0); MEAN CORPUSCULAR VOLUME 89.8 fL (80.0-100.0); MEAN PLATELET VOLUME 8.6 fL (7.4-11.0); MONOCYTES # (AUTO) 0.5 x10^3/uL (0.3-0.8); MONOCYTES % (AUTO) 4.6 % (0.0-13.0); NEUTROPHILS # (AUTO) 9.9 x10^3/uL (2.2-4.8); NEUTROPHILS % (AUTO) 87.7 % (42.0-75.0); RED BLOOD COUNT 3.36 X10^6/uL (3.5-5.4); RED CELL DISTRIBUTION WIDTH 14.9 % (11.6-16.5); WHITE BLOOD COUNT 11.3 X10^3/uL (3.6-10.0)
[2023-01-02 06:55] LABS: ALANINE AMINOTRANSFERASE 21 Units/L (12-78); ALBUMIN 2.2 g/dL (3.4-5.0); ALKALINE PHOSPHATASE 62 Units/L (46-116); ASPARTATE AMINO TRANSFERASE 20 Units/L (15-37); BLOOD UREA NITROGEN 15 mg/dL (7-18); CARBON DIOXIDE 23.7 mmol/L (21-32); CHLORIDE 105 mmol/L (98-107); COR CA(FOR HYPOALB) 10.4 mg/dL (8.5-10.1); COR NA(FOR HYPERGLY) 136 mmol/L (136-145); CREATININE 0.82 mg/dL (0.55-1.02); SODIUM 136 mmol/L (136-145); TOTAL PROTEIN 5.7 g/dL (6.4-8.2); eGFR NON BLACK RACES > 60 (>60)
[2023-01-02] MEDS: NS 1,000 ML IV 1,000 ML IV SCH ×3 (07:24→23:19)
[2023-01-02 07:31] LABS: BAND NEUTROPHILS % 1 % (0-10)
[2023-01-02 07:32] LABS: PLATELET MORPHOLOGY COMMENT NORMAL (NORMAL)
--- NOTE | 2023-01-02 07:38 | RAD ---
HISTORYSOB hiatal herniaSTUDYAP chestCOMPARISONFebruary 2022FINDINGSThere is suggestion of increasing confluent airspace disease in the lower lobes although the submitted chest exam is technically limited and does not allow clear visualization of the lung bases. Heart size is unchanged.IMPRESSIONFindings concerning for increasing bibasal infiltrates. See above. Repeat exam recommended to better visualize and confirm.Electronically signed by: MARU PENNINGTON (Jan 02, 2023 07:36:52)
[2023-01-02] MEDS ORDERED: LEXAPRO ONE (07:51)
[2023-01-02] MEDS: PULMICORT NEB TX 0.5 MG NEB SCH ×2 (08:18→20:20)
[2023-01-02] MEDS: LOVENOX INJ 100 MG SYR SC SCH (08:24)
[2023-01-02] MEDS: VSL#3 PO SCH (08:24)
[2023-01-02] MEDS: SINGULAIR TAB 10 MG PO SCH (08:25)
[2023-01-02] MEDS: LEXAPRO PO SCH (08:25)
[2023-01-02] MEDS: GLUCOPHAGE XR 24-HR PO SCH ×2 (08:25→21:12)
[2023-01-02] MEDS: ACTOS PO SCH (08:25)
[2023-01-02] MEDS: ZOCOR TAB 40 MG PO SCH (08:25)
[2023-01-02] MEDS: ZYLOPRIM PO SCH (08:25)
[2023-01-02] MEDS: VIBRAMYCIN 100 MG in D5W 250 ML IV 250 ML IV SCH ×2 (08:26→21:13)
[2023-01-02] MEDS: LEVAQUIN PREMIX IV 750 MG 750 MG/150 ML BAG IV SCH (08:26)
[2023-01-02] MEDS: TENORMIN PO SCH (08:30)
--- NOTE | 2023-01-02 16:16 | PCM.PROG ---
Progress Note - Progress Note for Day of Date of Exam: 01/01/23 - Subjective Subjective: IS A 67 YEAR OLD PATIENT OF . SHE IS CURRENTLY INPATIENT STATUS FOR TREATMENT OF PNEUMONIA, SEPSIS, DEHYDRATION, DIARRHEA, AND HYPOTENSION. TODAY, SHE IS ALERT AND ORIENTED, SITTING UP ON THE SIDE OF THE BED ON MORNING ROUNDS. SHE COMPLAINS OF GENERALIZED WEAKNESS AND INTERMITTENT SHORTNESS OF BREATH TODAY. SHE DENIES NAUSEA, VOMITING, OR ANY CHEST DISCOMFORT. ON EXAMINATION, HEART IS REGULAR IN RATE AND RHYTHM. BILATERAL LUNGS ARE NOTED WITH DIMINISHED LUNG SOUNDS THROUGHOUT. ABDOMEN IS ROUND, SOFT, AND NON-TENDER WITH NORMAL BOWEL SOUNDS NOTED IN ALL QUADRANTS. NO UPPER OR LOWER EXTREMITY EDEMA NOTED. HER VITALS THIS MORNING ARE: 97.4-73-20-93%-154/67. LABS WERE OBT AINED. WBC 12.6, RBC 3.07, HGB 9.0, HCT 27.7, SODIUM 138, POTASSIUM 3.7, CHLORIDE 108, BUN 19, CREATININE 0.81, GLUCOSE 132, CALCIUM 8.5, AST 14, ALT 18, ALK PHOS 61, TOTAL PROTEIN 5.5, ALBUMIN 2.0. BLOOD CULTURES ARE PENDING. A CHEST XRAY WAS OBTAINED TODAY AND REVEALED: No significant change in airspace and interstitial opacities that may represent pulmonary edema or pneumonia. Blunted right costophrenic sulcus can be seen with small pleural effusion or pleuro- parynchemal scarring. SHE IS CURRENTLY RECEIVING NORMAL SALINE AT 50 ML/HR, DOXYCYCLINE 100MG IV Q12H, LEVAQUIN 750MG IV DAILY, PULMICORT NEBS BID, XOPENEX NEBS Q6H, SOLU-CORTEF 50MG IV Q6H, LOVENOX 50MG IV Q6H, PROBIOTICS 2 CAPSULES DAILY, ZOFRAN 4MG IV Q6H PRN. HER HOME MEDICATIONS OF ZYLOPRIM, TENORMIN, LEXAPRO, GLUCOPHAGE, SINGULAIR, ACTOS, ZOCOR, AND AMBIEN WERE ALSO RESUMED. WE WILL CONTINUE WITH CURRENT PLAN OF CARE TODAY. OTHERWISE, WE PLAN TO FOLLOW-UP WITH AM LABS AND CHEST XRAY AND CONTINUE TO MONITOR. TIME SPENT ON CLINICAL ASSESSMENT, REVIEWING LABS AND IMAGING, DECISION MAKING, AND DOCUMENTATION GREATER THAN 45 MINUTES. - Past Medical Family Social History Past Med/Fam/Surg Hx: No changes since H&P Allergies: Allergies No Known Drug Allergies Allergy (Verified 03/17/21 13:48) - Review of Systems ROS: No change since H&P - Vital Signs and I&O's Vital Signs: Temperature 97.5 F Pulse Rate [Right Brachial] 72 Pulse Rate 75 Respiratory Rate 18 Blood Pressure [Left Arm] 122/57 Blood Pressure 104/48 O2 Sat by Pulse Oximetry 96 Intake and Output: Intake & Output 12/31/22 01/01/23 01/02/23 01/03/23 11:59 11:59 11:59 11:59 Intake Total 3630 / 3630 4410 / 4410 2460 / 2460 1220 / 1220 Balance 3630 / 3630 4410 / 4410 2460 / 2460 1220 / 1220 - Physical Exam Oriented: Normal Eyes: Normal Ear: Normal Nose: Normal Throat: Normal Respiratory: Diminished Cardiovascular: Normal : Normal Auscultation: Bowel Sounds: Normal Palpation: Normal Tenderness: Normal Skin: Normal Musculoskeletal: Normal Psychiatric: Normal Mood Description: Calm Affect: Normal Speech Pattern: Clear, Appropriate - Laboratory and Diagnostics Result Diagrams: 01/02/23 05:58 01/02/23 05:58 Labs: 12/29/22 18:15 Blood Blood Culture - Preliminary 12/29/22 18:26 Blood Blood Culture - Preliminary Laboratory WBC 11.3 X10^3/uL (3.6-10.0) H 01/02/23 05:58 RBC 3.36 X10^6/uL (3.5-5.4) L 01/02/23 05:58 Hgb 9.8 g/dL (12.0-16.0) L 01/02/23 05:58 Hct 30.2 % (36.0-47.0) L 01/02/23 05:58 MCV 89.8 fL (80.0-100.0) 01/02/23 05:58 MCH 29.1 pg (27.0-34.0) 01/02/23 05:58 MCHC 32.4 g/dL (33.0-35.0) L 01/02/23 05:58 RDW 14.9 % (11.6-16.5) 01/02/23 05:58 Plt Count 249 X10^3/uL (150.0-450.0) 01/02/23 05:58 Plt Count Comment Adequate (ADEQUATE) 01/02/23 05:58 MPV 8.6 fL (7.4-11.0) 01/02/23 05:58 Neut % (Auto) 87.7 % (42.0-75.0) H 01/02/23 05:58 Lymph % (Auto) 7.4 % (21.0-51.0) L 01/02/23 05:58 [place] % (Auto) 4.6 % (0.0-13.0) 01/02/23 05:58 Eos % (Auto) 0.1 % (0.9-2.9) L 01/02/23 05:58 Baso % (Auto) 0.2 % (0.2-1.0) 01/02/23 05:58 Neut # (Auto) 9.9 x10^3/uL (2.2-4.8) H 01/02/23 05:58 Lymph # (Auto) 0.8 X10^3/uL (1.3-2.9) L 01/02/23 05:58 [place] # (Auto) 0.5 x10^3/uL (0.3-0.8) 01/02/23 05:58 Eos # (Auto) 0.0 x10^3/uL (0.0-0.2) 01/02/23 05:58 Baso # (Auto) 0.0 X10^3/uL (0.0-0.1) 01/02/23 05:58 Absolute Nucleated RBC 0.0 /100WBC 01/02/23 05:58 Total Counted 100 01/02/23 05:58 Neutrophils % (Manual) 89 % (39-76) H 01/02/23 05:58 Band Neutrophils % 1 % (0-10) 01/02/23 05:58 Lymphocytes % (Manual) 9 % (13-43) L 01/02/23 05:58 Monocytes % (Manual) 1 % (4-9) L 01/02/23 05:58 Plt Morphology Comment Normal (NORMAL) 01/02/23 05:58 RBC Morphology Normal (NORMAL) 01/02/23 05:58 PT 17.3 SECONDS (11.8-14.3) 12/29/22 19:55 INR Target Range - 12/29/22 19:55 INR 1.47 (0.8-1.3) H 12/29/22 19:55 APTT 40.7 SECONDS (22.9-36.5) H 12/29/22 19:55 PTT Comment - 12/29/22 19:55 D-Dimer 2.19 ug/ml (0.0-0.57) H 12/29/22 17:40 Sample Site Rr 12/29/22 19:13 ABG pH 7.440 (7.35-7.45) 12/29/22 19:13 ABG pCO2 32.0 mmHg (35.0-45.0) L 12/29/22 19:13 ABG pO2 69.0 mmHg (80.0-100.0) L 12/29/22 19:13 ABG HCO3 21.7 mmol/L (22-26) L 12/29/22 19:13 ABG O2 Saturation 94.0 % (90-100) 12/29/22 19:13 ABG Base Excess -1.7 mmol/L (-2.0-2.0) 12/29/22 19:13 Timo Test Pos 12/29/22 19:13 A-a Gradient 91.0 mmHg 12/29/22 19:13 FiO2 28.0 12/29/22 19:13 Blood Gas Comments Maricel well sw 12/29/22 19:13 Sodium 136 mmol/L (136-145) 01/02/23 05:58 Corrected Sodium 136 mmol/L (136-145) 01/02/23 05:58 Potassium 3.5 mmol/L (3.5-5.1) 01/02/23 05:58 Chloride 105 mmol/L (98-107) 01/02/23 05:58 Carbon Dioxide 23.7 mmol/L (21-32) 01/02/23 05:58 BUN 15 mg/dL (7-18) 01/02/23 05:58 Creatinine 0.82 mg/dL (0.55-1.02) 01/02/23 05:58 Est GFR (MDRD) Af Amer > 60 (>60) 01/02/23 05:58 Est GFR (MDRD) Non-Af > 60 (>60) 01/02/23 05:58 Glucose 113 mg/dL (65-99) H 01/02/23 05:58 POC Glucose (mg/dL) 96 mg/dL (65-99) 01/02/23 11:04 Lactic Acid 0.8 mmol/L (0.4-2.0) 12/30/22 07:55 Calcium 9.0 mg/dL (8.5-10.1) 01/02/23 05:58 Corrected Calcium 10.4 mg/dL (8.5-10.1) H 01/02/23 05:58 Total Bilirubin 0.20 mg/dL (0.2-1.0) 01/02/23 05:58 AST 20 Units/L (15-37) 01/02/23 05:58 ALT 21 Units/L (12-78) 01/02/23 05:58 Alkaline Phosphatase 62 Units/L (46-116) 01/02/23 05:58 Creatine Kinase 144 Units/L (26-192) 12/30/22 07:55 Troponin I High Sens 6.9 ng/L (4.0-60.0) 12/30/22 13:57 Total Protein 5.7 g/dL (6.4-8.2) L 01/02/23 05:58 Albumin 2.2 g/dL (3.4-5.0) L 01/02/23 05:58 Globulin 3.5 g/dL (2.5-4.5) 01/02/23 05:58 Albumin/Globulin Ratio 0.6 Ratio (1.1-2.1) L 01/02/23 05:58 Amylase 26 Units/L (25-115) 12/29/22 19:55 Lipase Cancelled 12/29/22 19:55 Cortisol 78.4 ug/dL 12/29/22 19:55 Specimen Type Clean catch urine 12/29/22 18:56 Urine Color Yellow (YELLOW) 12/29/22 18:56 Urine Appearance Slightly hazy (CLEAR) 12/29/22 18:56 Urine pH 5.0 (5.0 - 8.0) 12/29/22 18:56 Ur Specific [place] 1.020 (1.000-1.030) 12/29/22 18:56 Urine Protein 1+ (NEGATIVE) 12/29/22 18:56 Urine Glucose (UA) Negative (NEGATIVE) 12/29/22 18:56 Urine Ketones Negative (NEGATIVE) 12/29/22 18:56 Urine Blood 2+ (NEGATIVE) 12/29/22 18:56 Urine Nitrite Negative (NEGATIVE) 12/29/22 18:56 Urine Bilirubin Negative (NEGATIVE) 12/29/22 18:56 Urine Urobilinogen Normal (NORMAL) 12/29/22 18:56 Ur Leukocyte Esterase Negative (NEGATIVE) 12/29/22 18:56 Urine RBC 3-5 /HPF (0-3) A 12/29/22 18:56 Urine WBC 0-2 /HPF (0-5) 12/29/22 18:56 Ur Squamous Epith Cells Moderate /HPF (NEGATIVE) 12/29/22 18:56 Amorphous Sediment 1+ /HPF (NEGATIVE) 12/29/22 18:56 Urine Bacteria Trace /HPF (NEGATIVE) 12/29/22 18:56 Hyaline Casts Moderate /LPF (NEGATIVE) 12/29/22 18:56 Coarse Granular Casts Rare /HPF (NEGATIVE) 12/29/22 18:56 Urine Mucus Few /HPF (NEGATIVE) 12/29/22 18:56 Ur Culture Indicated? No/not indicated 12/29/22 18:56 SARS-CoV-2 (PCR) Negative (NEGATIVE) 12/29/22 17:53 Influenza Type A (PCR) Negative (NEGATIVE) 12/29/22 17:53 Influenza Type B (PCR) Negative (NEGATIVE) 12/29/22 17:53 RSV (PCR) Negative (NEGATIVE) 12/29/22 17:53 Resp Viral Panel (PCR) See scanned report 12/29/22 20:40 - Plan (1) Lingular pneumonia Status: Acute Plan: SUPPLEMENTAL OXYGEN, NORMAL SALINE AT 50 ML/HR, DOXYCYCLINE 100MG IV Q12H, LEVAQUIN 750MG IV DAILY, PULMICORT NEBS BID, XOPENEX NEBS Q6H, SOLU-CORTEF 50MG IV Q6H, LOVENOX 50MG IV Q6H, PROBIOTICS 2 CAPSULES DAILY, ZOFRAN 4MG IV Q6H PRN. HER HOME MEDICATIONS OF ZYLOPRIM, TENORMIN, LEXAPRO, GLUCOPHAGE, SINGULAIR, ACTOS, ZOCOR, AND AMBIEN WERE ALSO RESUMED (2) Sepsis Status: Acute Qualifiers: Sepsis type: sepsis due to unspecified organism Sepsis acute organ dysfunction status: unspecified Qualified Code(s): A41.9 - Sepsis, unspecified organism (3) Diarrhea in adult patient Status: Acute (4) Hypotension Status: Acute Qualifiers: Hypotension type: unspecified hypotension type Qualified Code(s): I95.9 - Hypotension, unspecified (5) Dehydration Status: Acute (6) Diabetes Status: Chronic Qualifiers: Diabetes mellitus type: type 2 Diabetes mellitus intermediate teacher insulin use: with intermediate teacher use Diabetes mellitus complication status: with hyperglycemia Qualified Code(s): E11.65 - Type 2 diabetes mellitus with hyperglycemia; Z79.4 - halfway (current) use of insulin
--- NOTE | 2023-01-02 16:26 | PCM.PROG ---
Progress Note - Progress Note for Day of Date of Exam: 01/02/23 - Subjective Subjective: IS A 67 YEAR OLD PATIENT OF . SHE IS CURRENTLY INPATIENT STATUS FOR TREATMENT OF PNEUMONIA, SEPSIS, DEHYDRATION, DIARRHEA, AND HYPOTENSION. TODAY, SHE IS ALERT AND ORIENTED, LYING IN BED ON MORNING ROUNDS. SHE COMPLAINS OF GENERALIZED WEAKNESS AND INTERMITTENT SHORTNESS OF BREATH TODAY. SHE DENIES NAUSEA, VOMITING, OR ANY CHEST DISCOMFORT. ON EXAMINATION, HEART IS REGULAR IN RATE AND RHYTHM. BILATERAL LUNGS ARE NOTED WITH DIMINISHED LUNG SOUNDS THROUGHOUT. ABDOMEN IS ROUND, SOFT, AND NON-TENDER WITH NORMAL BOWEL SOUNDS NOTED IN ALL QUADRANTS. NO UPPER OR LOWER EXTREMITY EDEMA NOTED. HER VITALS THIS MORNING ARE: 98.5-73-18-94%-123/57 LABS WERE OBTAINED. WBC 11.3, RBC 3.36, HGB 9.8, HCT 30.2, PLT COUNT 249, SODIUM 136, POTASSIUM 3.5, CHLORIDE 105, BUN 15, CREATININE 0.82, GLUCOSE 113, AST 20, ALT 21, ALK PHOS 62, TOTAL PROTEIN 5.7, ALBUMIN 2.2. BLOOD CULTURES ARE PENDING. A CHEST XRAY WAS OBTAINED TODAY AND REVEALED: There is suggestion of increasing confluent airspace disease in the lower lobes although the submitted chest exam is technically limited and does not allow clear visualization of the lung bases. Heart size is unchanged. SHE IS CURRENTLY RECEIVING NORMAL SALINE AT 50 ML/HR, DOXYCYCLINE 100MG IV Q12H, LEVAQUIN 750MG IV DAILY, PULMICORT NEBS BID, XOPENEX NEBS Q6H, SOLU-CORTEF 50MG IV Q6H, LOVENOX 50MG IV Q6H, PROBIOTICS 2 CAPSULES DAILY, ZOFRAN 4MG IV Q6H PRN. HER HOME MEDICATIONS OF ZYLOPRIM, TENORMIN, LEXAPRO, GLUCOPHAGE, SINGULAIR, ACTOS, ZOCOR, AND AMBIEN WERE ALSO RESUMED. WE WILL CONTINUE WITH CURRENT PLAN OF CARE TODAY. OTHERWISE, WE PLAN TO FOLLOW-UP WITH AM LABS AND CHEST XRAY AND CONTINUE TO MONITOR. TIME SPENT ON CLINICAL ASSESSMENT, REVIEWING LABS AND IMAGING, DECISION MAKING, AND DOCUMENTATION GREATER THAN 45 MINUTES. - Past Medical Family Social History Past Med/Fam/Surg Hx: No changes since H&P Allergies: Allergies No Known Drug Allergies Allergy (Verified 03/17/21 13:48) - Review of Systems ROS: No change since H&P - Vital Signs and I&O's Vital Signs: Temperature 97.5 F Pulse Rate [Right Brachial] 72 Pulse Rate 75 Respiratory Rate 18 Blood Pressure [Left Arm] 122/57 Blood Pressure 104/48 O2 Sat by Pulse Oximetry 96 Intake and Output: Intake & Output 12/31/22 01/01/23 01/02/23 01/03/23 11:59 11:59 11:59 11:59 Intake Total 3630 / 3630 4410 / 4410 2460 / 2460 1220 / 1220 Balance 3630 / 3630 4410 / 4410 2460 / 2460 1220 / 1220 - Physical Exam Oriented: Normal Eyes: Normal Ear: Normal Nose: Normal Throat: Normal Respiratory: Diminished Cardiovascular: Normal : Normal Auscultation: Bowel Sounds: Normal Palpation: Normal Tenderness: Normal Skin: Normal Musculoskeletal: Normal Psychiatric: Normal Mood Description: Calm Affect: Normal Speech Pattern: Clear, Appropriate - Laboratory and Diagnostics Result Diagrams: 01/02/23 05:58 01/02/23 05:58 Labs: 12/29/22 18:15 Blood Blood Culture - Preliminary 12/29/22 18:26 Blood Blood Culture - Preliminary Laboratory WBC 11.3 X10^3/uL (3.6-10.0) H 01/02/23 05:58 RBC 3.36 X10^6/uL (3.5-5.4) L 01/02/23 05:58 Hgb 9.8 g/dL (12.0-16.0) L 01/02/23 05:58 Hct 30.2 % (36.0-47.0) L 01/02/23 05:58 MCV 89.8 fL (80.0-100.0) 01/02/23 05:58 MCH 29.1 pg (27.0-34.0) 01/02/23 05:58 MCHC 32.4 g/dL (33.0-35.0) L 01/02/23 05:58 RDW 14.9 % (11.6-16.5) 01/02/23 05:58 Plt Count 249 X10^3/uL (150.0-450.0) 01/02/23 05:58 Plt Count Comment Adequate (ADEQUATE) 01/02/23 05:58 MPV 8.6 fL (7.4-11.0) 01/02/23 05:58 Neut % (Auto) 87.7 % (42.0-75.0) H 01/02/23 05:58 Lymph % (Auto) 7.4 % (21.0-51.0) L 01/02/23 05:58 [place] % (Auto) 4.6 % (0.0-13.0) 01/02/23 05:58 Eos % (Auto) 0.1 % (0.9-2.9) L 01/02/23 05:58 Baso % (Auto) 0.2 % (0.2-1.0) 01/02/23 05:58 Neut # (Auto) 9.9 x10^3/uL (2.2-4.8) H 01/02/23 05:58 Lymph # (Auto) 0.8 X10^3/uL (1.3-2.9) L 01/02/23 05:58 [place] # (Auto) 0.5 x10^3/uL (0.3-0.8) 01/02/23 05:58 Eos # (Auto) 0.0 x10^3/uL (0.0-0.2) 01/02/23 05:58 Baso # (Auto) 0.0 X10^3/uL (0.0-0.1) 01/02/23 05:58 Absolute Nucleated RBC 0.0 /100WBC 01/02/23 05:58 Total Counted 100 01/02/23 05:58 Neutrophils % (Manual) 89 % (39-76) H 01/02/23 05:58 Band Neutrophils % 1 % (0-10) 01/02/23 05:58 Lymphocytes % (Manual) 9 % (13-43) L 01/02/23 05:58 Monocytes % (Manual) 1 % (4-9) L 01/02/23 05:58 Plt Morphology Comment Normal (NORMAL) 01/02/23 05:58 RBC Morphology Normal (NORMAL) 01/02/23 05:58 PT 17.3 SECONDS (11.8-14.3) 12/29/22 19:55 INR Target Range - 12/29/22 19:55 INR 1.47 (0.8-1.3) H 12/29/22 19:55 APTT 40.7 SECONDS (22.9-36.5) H 12/29/22 19:55 PTT Comment - 12/29/22 19:55 D-Dimer 2.19 ug/ml (0.0-0.57) H 12/29/22 17:40 Sample Site Rr 12/29/22 19:13 ABG pH 7.440 (7.35-7.45) 12/29/22 19:13 ABG pCO2 32.0 mmHg (35.0-45.0) L 12/29/22 19:13 ABG pO2 69.0 mmHg (80.0-100.0) L 12/29/22 19:13 ABG HCO3 21.7 mmol/L (22-26) L 12/29/22 19:13 ABG O2 Saturation 94.0 % (90-100) 12/29/22 19:13 ABG Base Excess -1.7 mmol/L (-2.0-2.0) 12/29/22 19:13 Timo Test Pos 12/29/22 19:13 A-a Gradient 91.0 mmHg 12/29/22 19:13 FiO2 28.0 12/29/22 19:13 Blood Gas Comments Maricel well sw 12/29/22 19:13 Sodium 136 mmol/L (136-145) 01/02/23 05:58 Corrected Sodium 136 mmol/L (136-145) 01/02/23 05:58 Potassium 3.5 mmol/L (3.5-5.1) 01/02/23 05:58 Chloride 105 mmol/L (98-107) 01/02/23 05:58 Carbon Dioxide 23.7 mmol/L (21-32) 01/02/23 05:58 BUN 15 mg/dL (7-18) 01/02/23 05:58 Creatinine 0.82 mg/dL (0.55-1.02) 01/02/23 05:58 Est GFR (MDRD) Af Amer > 60 (>60) 01/02/23 05:58 Est GFR (MDRD) Non-Af > 60 (>60) 01/02/23 05:58 Glucose 113 mg/dL (65-99) H 01/02/23 05:58 POC Glucose (mg/dL) 96 mg/dL (65-99) 01/02/23 11:04 Lactic Acid 0.8 mmol/L (0.4-2.0) 12/30/22 07:55 Calcium 9.0 mg/dL (8.5-10.1) 01/02/23 05:58 Corrected Calcium 10.4 mg/dL (8.5-10.1) H 01/02/23 05:58 Total Bilirubin 0.20 mg/dL (0.2-1.0) 01/02/23 05:58 AST 20 Units/L (15-37) 01/02/23 05:58 ALT 21 Units/L (12-78) 01/02/23 05:58 Alkaline Phosphatase 62 Units/L (46-116) 01/02/23 05:58 Creatine Kinase 144 Units/L (26-192) 12/30/22 07:55 Troponin I High Sens 6.9 ng/L (4.0-60.0) 12/30/22 13:57 Total Protein 5.7 g/dL (6.4-8.2) L 01/02/23 05:58 Albumin 2.2 g/dL (3.4-5.0) L 01/02/23 05:58 Globulin 3.5 g/dL (2.5-4.5) 01/02/23 05:58 Albumin/Globulin Ratio 0.6 Ratio (1.1-2.1) L 01/02/23 05:58 Amylase 26 Units/L (25-115) 12/29/22 19:55 Lipase Cancelled 12/29/22 19:55 Cortisol 78.4 ug/dL 12/29/22 19:55 Specimen Type Clean catch urine 12/29/22 18:56 Urine Color Yellow (YELLOW) 12/29/22 18:56 Urine Appearance Slightly hazy (CLEAR) 12/29/22 18:56 Urine pH 5.0 (5.0 - 8.0) 12/29/22 18:56 Ur Specific [place] 1.020 (1.000-1.030) 12/29/22 18:56 Urine Protein 1+ (NEGATIVE) 12/29/22 18:56 Urine Glucose (UA) Negative (NEGATIVE) 12/29/22 18:56 Urine Ketones Negative (NEGATIVE) 12/29/22 18:56 Urine Blood 2+ (NEGATIVE) 12/29/22 18:56 Urine Nitrite Negative (NEGATIVE) 12/29/22 18:56 Urine Bilirubin Negative (NEGATIVE) 12/29/22 18:56 Urine Urobilinogen Normal (NORMAL) 12/29/22 18:56 Ur Leukocyte Esterase Negative (NEGATIVE) 12/29/22 18:56 Urine RBC 3-5 /HPF (0-3) A 12/29/22 18:56 Urine WBC 0-2 /HPF (0-5) 12/29/22 18:56 Ur Squamous Epith Cells Moderate /HPF (NEGATIVE) 12/29/22 18:56 Amorphous Sediment 1+ /HPF (NEGATIVE) 12/29/22 18:56 Urine Bacteria Trace /HPF (NEGATIVE) 12/29/22 18:56 Hyaline Casts Moderate /LPF (NEGATIVE) 12/29/22 18:56 Coarse Granular Casts Rare /HPF (NEGATIVE) 12/29/22 18:56 Urine Mucus Few /HPF (NEGATIVE) 12/29/22 18:56 Ur Culture Indicated? No/not indicated 12/29/22 18:56 SARS-CoV-2 (PCR) Negative (NEGATIVE) 12/29/22 17:53 Influenza Type A (PCR) Negative (NEGATIVE) 12/29/22 17:53 Influenza Type B (PCR) Negative (NEGATIVE) 12/29/22 17:53 RSV (PCR) Negative (NEGATIVE) 12/29/22 17:53 Resp Viral Panel (PCR) See scanned report 12/29/22 20:40 - Plan (1) Lingular pneumonia Status: Acute Plan: SUPPLEMENTAL OXYGEN, NORMAL SALINE AT 50 ML/HR, DOXYCYCLINE 100MG IV Q12H, LEVAQUIN 750MG IV DAILY, PULMICORT NEBS BID, XOPENEX NEBS Q6H, SOLU-CORTEF 50MG IV Q6H, LOVENOX 50MG IV Q6H, PROBIOTICS 2 CAPSULES DAILY, ZOFRAN 4MG IV Q6H PRN. HER HOME MEDICATIONS OF ZYLOPRIM, TENORMIN, LEXAPRO, GLUCOPHAGE, SINGULAIR, ACTOS, ZOCOR, AND AMBIEN WERE ALSO RESUMED (2) Sepsis Status: Acute Qualifiers: Sepsis type: sepsis due to unspecified organism Sepsis acute organ dysfunction status: unspecified Qualified Code(s): A41.9 - Sepsis, unspecified organism (3) Diarrhea in adult patient Status: Acute (4) Hypotension Status: Acute Qualifiers: Hypotension type: unspecified hypotension type Qualified Code(s): I95.9 - Hypotension, unspecified (5) Dehydration Status: Acute (6) Diabetes Status: Chronic Qualifiers: Diabetes mellitus type: type 2 Diabetes mellitus dedicated intermodal truck driver insulin use: with dedicated intermodal truck driver use Diabetes mellitus complication status: with hyperglycemia Qualified Code(s): E11.65 - Type 2 diabetes mellitus with hyperglycemia; Z79.4 - watermelon inspector (current) use of insulin
[2023-01-02] MEDS: AMBIEN PO SCH (21:13)
[2023-01-03] MEDS: XOPENEX 1.25 MG/3 ML NEBULE NEB SCH ×2 (00:45→06:27)
[2023-01-03] MEDS: SOLU-Cortef INJ IVP SCH ×2 (02:43→09:18)
[2023-01-03] MEDS: NS 1,000 ML IV 1,000 ML IV SCH (04:11)
[2023-01-03 06:16] LABS: BASOPHILS % (AUTO) 0.2 % (0.2-1.0); EOSINOPHILS % (AUTO) 0.1 % (0.9-2.9); HEMATOCRIT 29.5 % (36.0-47.0); LYMPHOCYTES # (AUTO) 0.9 X10^3/uL (1.3-2.9); LYMPHOCYTES % (AUTO) 7.7 % (21.0-51.0); MEAN CORPUSCULAR HEMOGLOBIN 30.1 pg (27.0-34.0); MEAN CORPUSCULAR HGB CONC 33.7 g/dL (33.0-35.0); MEAN CORPUSCULAR VOLUME 89.2 fL (80.0-100.0); MEAN PLATELET VOLUME 8.4 fL (7.4-11.0); MONOCYTES # (AUTO) 0.6 x10^3/uL (0.3-0.8); NEUTROPHILS # (AUTO) 9.7 x10^3/uL (2.2-4.8); RED BLOOD COUNT 3.31 X10^6/uL (3.5-5.4); RED CELL DISTRIBUTION WIDTH 14.8 % (11.6-16.5); WHITE BLOOD COUNT 11.1 X10^3/uL (3.6-10.0)
[2023-01-03 06:32] LABS: ALANINE AMINOTRANSFERASE 31 Units/L (12-78); ALBUMIN 2.2 g/dL (3.4-5.0); ALKALINE PHOSPHATASE 59 Units/L (46-116); ASPARTATE AMINO TRANSFERASE 34 Units/L (15-37); BLOOD UREA NITROGEN 11 mg/dL (7-18); CARBON DIOXIDE 27.4 mmol/L (21-32); CHLORIDE 105 mmol/L (98-107); COR CA(FOR HYPOALB) 10.4 mg/dL (8.5-10.1); CREATININE 0.71 mg/dL (0.55-1.02); SODIUM 139 mmol/L (136-145); TOTAL PROTEIN 5.4 g/dL (6.4-8.2); eGFR NON BLACK RACES > 60 (>60)
[2023-01-03 06:55] LABS: PLATELET MORPHOLOGY COMMENT NORMAL (NORMAL)
--- NOTE | 2023-01-03 07:51 | RAD ---
HISTORYSOBSTUDYAP chestCOMPARISONFebruary 2022FINDINGSThere is no definite change since 1 day prior. Stable cardiac size and contour. Bibasal opacities again suggested, visualization limited by technical underpenetration and patient habitus.IMPRESSIONNo change/new abnormality since 1 day prior.Electronically signed by: MARU PENNINGTON (Jan 03, 2023 07:50:03)
[2023-01-03] MEDS: PULMICORT NEB TX 0.5 MG NEB SCH (07:53)
[2023-01-03] MEDS ORDERED: LEXAPRO ONE (08:07)
[2023-01-03 08:28] VITALS: BP 143/60
[2023-01-03] MEDS: ZYLOPRIM PO SCH (09:18)
[2023-01-03] MEDS: GLUCOPHAGE XR 24-HR PO SCH (09:18)
[2023-01-03] MEDS: SINGULAIR TAB 10 MG PO SCH (09:18)
[2023-01-03] MEDS: ZOCOR TAB 40 MG PO SCH (09:18)
[2023-01-03] MEDS: ACTOS PO SCH (09:18)
[2023-01-03] MEDS: LEXAPRO PO SCH (09:18)
[2023-01-03] MEDS: TENORMIN PO SCH (09:19)
[2023-01-03] MEDS: VIBRAMYCIN 100 MG in D5W 250 ML IV 250 ML IV SCH (09:19)
[2023-01-03] MEDS: LEVAQUIN PREMIX IV 750 MG 750 MG/150 ML BAG IV SCH (09:19)
[2023-01-03] MEDS: VSL#3 PO SCH (09:20)
[2023-01-03] MEDS: LOVENOX INJ 100 MG SYR SC SCH (09:20)
== END 2023-01-03 11:30 | disposition home or self-care (01) | DRG 194 ==
LOC: ER 17:24 → MED/SURG 19:13
PROVIDERS: ADMIT Obstetrics & Gynecology Obstetrics; ATTEND Obstetrics & Gynecology Obstetrics
DX: Z20.822 Contact with and (suspected) exposure to COVID-19; R06.02 Shortness of breath; E78.2 Mixed hyperlipidemia; R79.1 Abnormal coagulation profile; E11.65 Type 2 diabetes mellitus with hyperglycemia; Z79.4 Long term (current) use of insulin; J90 Pleural effusion, not elsewhere classified; J44.9 Chronic obstructive pulmonary disease, unspecified; R11.2 Nausea with vomiting, unspecified; I95.89 Other hypotension; J13 Pneumonia due to Streptococcus pneumoniae; R19.7 Diarrhea, unspecified; R07.89 Other chest pain; I10 Essential (primary) hypertension